=== PATIENT | female | born 1970 | race Caucasian/White ===

== ENCOUNTER 2022-03-16 06:49 | Emergency (ER) | payer OTHER ==
[~2022-03-16] VITALS: Ht 167.6 cm; Wt 68.0 kg
[~2022-03-16 06:49] MED LIST: HYDR-4354 PO
[2022-03-16 06:58] VITALS: BP 136/86
--- NOTE | 2022-03-16 07:05 | NUR ---
[facility] [employer] C/O R ANKLE POSSIBLE BIT BY INSECT. REDNESS AND SWELLING NOTED TO PT'S RIGHT ANKLE; WARM TO TOUCH. PT A/OX4. TOLERATING R/A WELL WITH NO SOB. CONNECTED PT TO POX AND MONITOR. SAFETY MEASURES IN PLACE.
[2022-03-16] MEDS ORDERED: CEPH500C2 PO (08:01)
[2022-03-16] MEDS ORDERED: IBUP-1957 PO (08:01)
== END 2022-03-16 08:07 | disposition home or self-care (01) ==
LOC: ER 06:51
DX: S90.561A Insect bite (nonvenomous), right ankle, initial encounter (principal); Z79.899 Other long term (current) drug therapy; W57.XXXA Bitten or stung by nonvenomous insect and other nonvenomous arthropods, initial encounter; Y93.89 Activity, other specified; Y92.89 Other specified places as the place of occurrence of the external cause; Y99.8 Other external cause status